=== PATIENT | male | born 1995 | race Caucasian/White ===

== ENCOUNTER → 2019-04-26 | Outpatient (CLI) | payer SELFPAY ==
--- NOTE | 2019-04-26 09:33 | REP ---
Scrotal ultrasound for scrotal hernia: The patient states that he has had a left scrotal hernia that moves in and out and is not currently bulging into the scrotum at this time. The right testis measures 5.4-0.4 x 3.3 cm. The left testis measures 4.8 x 2.2 x 3.0 cm. The testes are normal size. There are no testicular masses or cysts. There is vascular flow in both testes. The Doppler resistive index of the parenchymal arteries in the left testis is 0.60 and right testis 0.51. No scrotal hernia is present at the time of ultrasound. The right epididymal head measures 6.8 mm and left epididymal head measures 7.1 mm. There are no epididymal head cysts. There are small bilateral hydroceles. There is a left varicocele. Impression: There is no scroll hernia at the time of ultrasound. There are small bilateral hydroceles. There is a left varicocele. Electronically Signed by Bebeto Lopes MD 04/26/2019 09:24 A
== END ==
LOC: M RAD 08:09
PROVIDERS: ATTEND Nurse Practitioner Adult Health
DX: K40.90 Unilateral inguinal hernia, without obstruction or gangrene, not specified as recurrent (principal)